=== PATIENT | male | born 1965 | race Caucasian/White ===

== ENCOUNTER 2021-11-11 11:30 | Observation (INO) | payer OTHER ==
[2021-11-11] VITALS (13 sets, daily range): BP systolic 121–157; BP diastolic 65–96
[~2021-11-11] VITALS: Ht 175.3 cm; Wt 121.0 kg
[2021-11-11 12:06] LABS: GFR FOR AFR.AMER. > 60 ML/MIN (>=60 (CALC)); GFR OTHER RACES > 60 ML/MIN (>=60 (CALC))
[2021-11-11 12:07] LABS: HEMATOCRIT 47.8 % (39.0-50.0); HEMOGLOBIN 16.3 g/dl (14.0-18.0); IMMATURE GRANULOCYTES 0.2 % (0.0-5.0); MEAN CELL VOLUME 84.8 fL CALC (80.0-100.0); MEAN CORPUSCULAR HGB 28.9 pG CALC (26.0-32.0); MEAN CORPUSCULAR HGB CONC 34.1 g/dL CAL (32.0-36.0); NEUT# 8.57 thou/uL (1.82-7.42); RED BLOOD COUNT 5.64 mill/uL (4.70-6.10); RED CELL DISTRI WIDTH 13.5 % (11.5-15.5)
[2021-11-11] MEDS ORDERED: PREDNISONE20 MG PO (12:15)
[2021-11-11] MEDS ORDERED: OMEPRAZOLE DR20 MG PO (12:15)
[2021-11-11 12:20] LABS: ALBUMIN 4.3 g/dL (3.2-5.0); ALKALINE PHOSPHATASE 77 u/l (38-126); ANION GAP 13 (6-22 (CALC)); BILIRUBIN, TOTAL 0.6 mg/dL (0.0-1.4); BUN 17 mg/dL (9-20); BUN/CREATININE RATIO 18 (12-20 (CALC)); CARBON DIOXIDE 22 mmol/l (22-30); CHLORIDE 108 mmol/l (95-108); GFR FOR AFR.AMER. > 60 ML/MIN (>=60 (CALC)); GFR OTHER RACES > 60 ML/MIN (>=60 (CALC)); LIPASE 60 u/l (23-300); POTASSIUM 3.9 mmol/l (3.5-5.1); SGOT/AST 29 u/l (17-59); SODIUM 139 mmol/l (137-146)
[2021-11-12] VITALS: BP 121/69
[2021-11-12 04:00] VITALS: BP 140/70
[2021-11-12 05:15] LABS: CHOLESTEROL HDL RATIO 3.1 (<4.4 (CALC)); MAGNESIUM 2.1 mg/dL (1.6-2.3)
[2021-11-12 07:13] VITALS: BP 136/89
[2021-11-12 08:18] VITALS: BP 136/89
[2021-11-12 10:19] VITALS: BP 110/72
== END 2021-11-12 13:40 | disposition home or self-care (01) | DRG 313 ==
LOC: ED 11:30 → ED-I 16:00 → ED 16:39 → MS2 16:40
PROVIDERS: Family Medicine; ADMIT Internal Medicine; ATTEND Internal Medicine
DX: R07.89 Other chest pain (principal); K21.9 Gastro-esophageal reflux disease without esophagitis; K90.0 Celiac disease; E66.9 Obesity, unspecified; Z91.11 Patient's noncompliance with dietary regimen; Z20.822 Contact with and (suspected) exposure to COVID-19
CPT/HCPCS: G0378; J1650; Q9967

== ENCOUNTER 2022-01-20 19:47 | Emergency (ER) | payer OTHER ==
[~2022-01-20] VITALS: Ht 175.3 cm; Wt 117.0 kg
[~2022-01-20 19:47] MED LIST: OMEPRAZOLE DR20 MG PO; PREDNISONE20 MG PO
[2022-01-20] MEDS ORDERED: AMOX/K CLAV875 M1 PO (20:13)
[2022-01-20 20:28] VITALS: BP 161/88
== END 2022-01-20 20:34 | disposition home or self-care (01) | DRG 605 ==
LOC: ED 19:47
DX: S61.452A Open bite of left hand, initial encounter (principal); L08.9 Local infection of the skin and subcutaneous tissue, unspecified; W54.0XXA Bitten by dog, initial encounter; Y92.009 Unspecified place in unspecified non-institutional (private) residence as the place of occurrence of the external cause

== ENCOUNTER 2022-02-01 13:47 | Emergency (ER) | payer OTHER ==
[~2022-02-01] VITALS: Ht 175.3 cm; Wt 118.0 kg
[~2022-02-01 13:47] MED LIST changes: +AMOX/K CLAV875 M1 PO
[2022-02-01 14:41] VITALS: BP 125/72
[2022-02-01] MEDS ORDERED: SILVER SULFA1 % EX (15:10)
== END 2022-02-01 15:28 | disposition home or self-care (01) | DRG 935 ==
LOC: ED 13:47
DX: T22.252A Burn of second degree of left shoulder, initial encounter (principal); X08.8XXA Exposure to other specified smoke, fire and flames, initial encounter